=== PATIENT | female | born 1980 | race African-American/Black ===

== ENCOUNTER 2017-06-08 20:09 | Emergency (ER) | payer OTHER ==
[~2017-06-08] VITALS: Ht 176.5 cm; Wt 113.6 kg
[2017-06-08 20:14] VITALS: BP 122/70; PULSE 88; RESP 18; TEMP 98.5; O2SAT 98
--- NOTE | 2017-06-08 21:50 | PD ---
HPI Chief Complaint: Abdominal Pain Time Seen by Provider: 21:48 Travel History International Travel<30 days: No Contact w/Intl Traveler<30days: No Traveled to known affect area: No History of Present Illness HPI 37-year-old female came to the emergency room with history of left lower quadrant pain. Patient says this pain has been going on for past couple day but it is tonight when it started to get really severe and sharp in intensity. Pain is localized to the left lower quadrant without any radiation. She has been nauseous but no vomiting. No history of diarrhea. No history of dysuria. No history of blood in her stool. Patient has never had this kind of pain but in the past. No history of ureteral calculus. Vital signs are stable. Patient says that she has been having irregular. For past couple months. She went to see [employer] who has ordered an outpatient pelvic ultrasound. She has had tubal ligation done after her second child many years ago. Urine was negative. [facility] Past Medical History Narrative Medical List of her past medical, surgical, social and family history reviewed from the nursing note. ?: Unknown LMP: 2 months ago Social History Tobacco Use: Yes Allergies-Medications (Allergen,Severity, Reaction): Coded Allergies: No Known Allergies (Unverified , 06/08/17) Comments No known allergies Reported Meds & Prescriptions Reported Meds & Active Scripts Active No Active Prescriptions or Reported Medications Narrative Medication List of her home medications reviewed from the nursing note. Review of Systems Except as stated in HPI: all other systems reviewed are Neg Gastrointestinal: Positive: Abdominal Pain Physical Exam Narrative GENERAL: Awake, alert, moderate distress, SKIN: Focused skin assessment warm/dry. HEAD: Atraumatic. Normocephalic. EYES: Pupils equal and round. No scleral icterus. No injection or drainage. ENT: No nasal bleeding or discharge. Mucous membranes pink and moist. NECK: Trachea midline. No JVD. CARDIOVASCULAR: Regular rate and rhythm. No murmur appreciated. RESPIRATORY: No accessory muscle use. Clear to auscultation. Breath sounds equal bilaterally. GASTROINTESTINAL: Abdomen soft, non-tender, nondistended. Hepatic and splenic margins not palpable. MUSCULOSKELETAL: No obvious deformities. No clubbing. No cyanosis. No edema. NEUROLOGICAL: Awake and alert. No obvious cranial nerve deficits. Motor grossly within normal limits. Normal speech. PSYCHIATRIC: Appropriate mood and affect; insight and judgment normal. Data Data Last Documented VS Vital Signs Date Time Temp Pulse Resp B/P (MAP) Pulse Ox O2 Delivery O2 Flow Rate FiO2 06/08/17 22:01 19 06/08/17 20:14 98.5 88 122/70 (87) 98 Orders Orders Complete Blood Count With Diff (06/08/17 20:17) Comprehensive Metabolic Panel (06/08/17 20:17) Lipase (06/08/17 20:17) Urinalysis - C+S If Indicated (06/08/17 20:17) Ed Urine Pregnancytest Poc (06/08/17 20:17) Ct Abd/Pel W/O Iv Contrast (06/08/17 ) Morphine Inj (Morphine Inj) (06/08/17 22:00) Ondansetron Inj (Zofran Inj) (06/08/17 22:00) Ed Discharge Order (06/08/17 23:05) Labs Laboratory Tests Test 06/08/17 21:35 06/08/17 21:50 Urine Color LIGHT-YELLOW Urine Turbidity CLEAR Urine pH 6.0 Urine Specific [place] 1.029 Urine Protein NEG mg/dL Urine Glucose (UA) NEG mg/dL Urine Ketones NEG mg/dL Urine Occult Blood TRACE Urine Nitrite NEG Urine Bilirubin NEG Urine Urobilinogen LESS THAN 2.0 MG/DL Urine Leukocyte Esterase NEG Urine RBC 6 /hpf Urine WBC 1 /hpf Urine Squamous Epithelial Cells 2 /hpf Urine Amorphous Sediment RARE Urine Bacteria FEW /hpf Urine Mucus FEW /lpf Microscopic Urinalysis Comment CULT NOT INDICATED White Blood Count 7.9 TH/MM3 Red Blood Count 4.63 MIL/MM3 Hemoglobin 13.4 GM/DL Hematocrit 40.4 % Mean Corpuscular Volume 87.3 FL Mean Corpuscular Hemoglobin 29.0 PG Mean Corpuscular Hemoglobin Concent 33.2 % Red Cell Distribution Width 15.7 % Platelet Count 296 TH/MM3 Mean Platelet Volume 7.7 FL Neutrophils (%) (Auto) 54.0 % Lymphocytes (%) (Auto) 39.1 % Monocytes (%) (Auto) 5.8 % Eosinophils (%) (Auto) 0.7 % Basophils (%) (Auto) 0.4 % Neutrophils # (Auto) 4.2 TH/MM3 Lymphocytes # (Auto) 3.1 TH/MM3 Monocytes # (Auto) 0.5 TH/MM3 Eosinophils # (Auto) 0.1 TH/MM3 Basophils # (Auto) 0.0 TH/MM3 CBC Comment DIFF FINAL Differential Comment Blood Urea Nitrogen 13 MG/DL Creatinine 0.90 MG/DL Random Glucose 95 MG/DL Total Protein 7.6 GM/DL Albumin 4.0 GM/DL Calcium Level 9.0 MG/DL Alkaline Phosphatase 62 U/L Aspartate Amino Transf (AST/SGOT) 19 U/L Alanine Aminotransferase (ALT/SGPT) 36 U/L Total Bilirubin 0.2 MG/DL Sodium Level 138 MEQ/L Potassium Level 3.9 MEQ/L Chloride Level 108 MEQ/L Carbon Dioxide Level 23.7 MEQ/L Anion Gap 6 MEQ/L Estimat Glomerular Filtration Rate 86 ML/MIN Lipase 131 U/L MDM Medical Decision Making Medical Screen Exam Complete: Yes Emergency Medical Condition: Yes Medical Record Reviewed: Yes Differential Diagnosis Acute diverticulitis, UTI, ureteral colic Narrative Course 11:14 PM blood test results and UA are back and within normal limits. CT scan upper abdomen and pelvis is unremarkable. Patient was medicated for pain initially when she came in. I have gone back in and told the patient and her about the test results. I am comfortable discharging her home. Procedures EKG Prior to Arrival: No Diagnosis Primary Impression: Abdominal pain Qualified Codes: R10.32 - Left lower quadrant pain Referrals: Primary Care Physician 3 days Additional Instructions: Follow-up with your primary care. You can take Tylenol/Motrin/Advil/ibuprofen for pain. Take clear liquid diet for next 24-48 hours. Med/Other Pt SpecificInfo: No Change to Meds Scripts No Active Prescriptions or Reported Meds Disposition: 01 DISCHARGE HOME Condition: Stable Juliana Calderón MD Jun 08, 2017 21:50
[2017-06-08] MEDS ORDERED: MORPHINE SULFATE 4 MG/ML INJ IV PUSH ONE (22:00)
[2017-06-08] MEDS ORDERED: ONDANSETRON HCL 4 MG/2 ML VIAL IV PUSH ONE (22:00)
[2017-06-08 22:07] LABS: AUTOMATED NEUTROPHIL # 4.2 TH/MM3 (1.8-7.7); BASOPHIL % 0.4 % (0.0-2.0); EOSINOPHIL # 0.1 TH/MM3 (0-0.4); EOSINOPHIL % 0.7 % (0.0-4.0); HEMATOCRIT 40.4 % (35.0-46.0); HEMOGLOBIN 13.4 GM/DL (11.6-15.3); LYMPH % 39.1 % (9.0-44.0); LYMPHOCYTE # 3.1 TH/MM3 (1.0-4.8); MEAN CELL VOLUME 87.3 FL (80.0-100.0); MEAN CORPUSCULAR HGB CONC 33.2 % (32.0-36.0); MEAN PLATELET VOLUME 7.7 FL (7.0-11.0); MONO % 5.8 % (0.0-8.0); MONOCYTE # 0.5 TH/MM3 (0-0.9); PLATELET COUNT 296 TH/MM3 (150-450); RED BLOOD COUNT 4.63 MIL/MM3 (4.00-5.30); RED CELL DISTRIBUTION WIDTH 15.7 % (11.6-17.2); WHITE BLOOD COUNT 7.9 TH/MM3 (4.0-11.0)
[2017-06-08 22:12] LABS: AMORPHOUS SEDIMENT, URINE RARE; BACTERIA, URINE FEW /hpf; BILIRUBIN, URINE NEG (NEG); BLOOD, URINE TRACE (NEG); GLUCOSE,URINE NEG (NEG); KETONE, URINE NEG (NEG); MUCUS URINE FEW /lpf (OCC); NITRITE,URINE NEG (NEG); SQUAMOUS EPITHELIAL CELL URINE 2 /hpf (0-5); URINE COLOR LIGHT-YELLOW (YELLW/STRAW); URINE LEUKOCYTE ESTERASE NEG (NEG)
[2017-06-08 22:21] LABS: AST (GOT) 19 U/L (15-37); BICARBONATE 23.7 MEQ/L (21.0-32.0); BLOOD UREA NITROGEN 13 MG/DL (7-18); CHLORIDE 108 MEQ/L (98-107); GLOMERULAR FILTRATION RATE 86 ML/MIN (>89); GLUCOSE,RANDOM 95 MG/DL (74-106); SODIUM (NA) 138 MEQ/L (136-145)
[2017-06-08 22:22] LABS: ALT (GPT) 36 U/L (10-53)
[2017-06-08 22:25] LABS: ALKALINE PHOSPHATASE 62 U/L (45-117); TOTAL BILIRUBIN ADULT 0.2 MG/DL (0.2-1.0); TOTAL PROTEIN 7.6 GM/DL (6.4-8.2)
--- NOTE | 2017-06-08 22:42 | RADRPT ---
EXAM DATE/TIME: 06/08/2017 22:25 [facility] COMPARISON: No previous studies available for comparison. INDICATIONS : Abdominal pain. ORAL CONTRAST: No oral contrast ingested. RADIATION DOSE: 15.47 CTDIvol (mGy) MEDICAL HISTORY : None SURGICAL HISTORY : Tubal ligation. ENCOUNTER: Initial ACUITY: 1 week PAIN SCALE: 7/10 LOCATION: All quadrants. TECHNIQUE: Volumetric scanning of the abdomen and pelvis was performed. Using automated exposure control and ad justment of the mA and/or kV according to patient size, radiation dose was kept as low as reasonably achievable to obtain optimal diagnostic quality images. DICOM format image data is available electro nically for review and comparison. FINDINGS: LOWER LUNGS: The visualized lower lungs are clear. LIVER: Decreased attenuation without lesion. There is no dilation of the biliary tree. No calcified gallst ones. SPLEEN: Normal size without lesion. PANCREAS: Within normal limits. KIDNEYS: Normal in size and shape. There is no mass, stone, or hydronephrosis on the right. Nonobstructing 2 mm left renal calculus.. ADRENAL GLANDS: Within normal limits. VASCULAR: There is no aortic aneurysm. BOWEL/MESENTERY: The stomach, small bowel, and colon demonstrate no acute abnormality. There is no free intraperitone al air or fluid. Normal appendix. ABDOMINAL WALL: Within normal limits. RETROPERITONEUM: There is no lymphadenopathy. BLADDER: No wall thickening or mass. REPRODUCTIVE: Within normal limits. INGUINAL: There is no lymphadenopathy or hernia. MUSCULOSKELETAL: Within normal limits for patient age. CONCLUSION: 1. Nonobstructing 2 mm calculus lower pole left kidney. 2. No acute inflammatory process. Dusty Dalton MD on June 08, 2017 at 22:39 Board Certified Radiologist. This report was verified electronically.
== END 2017-06-08 23:40 | disposition home or self-care (01) ==
LOC: NEPD 20:09
DX: R10.32 Left lower quadrant pain (principal); R11.0 Nausea; Z72.0 Tobacco use
CPT/HCPCS: 74176; 80053; 81001; 83690; 84703; 85025; 96374; 96375; 99284; J2270; J2405